=== PATIENT | male | born 1980 | race Caucasian/White ===

== ENCOUNTER 2017-07-20 08:49 | Emergency (ER) | payer OTHER ==
[2017-07-20] MEDS ORDERED: Tetan/Diph/Pertus SYR(Tdap)* 0.5 ML SYR(BOOSTRIX) use SYR IM ONE (09:51)
[2017-07-20] MEDS ORDERED: Ibuprofen TAB* 800 MG PO ONE (09:51)
[2017-07-20] MEDS ORDERED: HYDROcodone/ACETAMIN 5-325 MG* 1 TAB PO ONE (12:00)
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
[2017-07-20 13:02] VITALS: BP 139/87
== END 2017-07-20 13:03 | disposition home or self-care (01) ==
LOC: ED 08:49
DX: S01.511A Laceration without foreign body of lip, initial encounter (principal); S02.5XXA Fracture of tooth (traumatic), initial encounter for closed fracture; W20.8XXA Other cause of strike by thrown, projected or falling object, initial encounter; Y93.H2 Activity, gardening and landscaping; Y92.9 Unspecified place or not applicable; Y99.0 Civilian activity done for income or pay; Z23 Encounter for immunization; F17.200 Nicotine dependence, unspecified, uncomplicated
CPT/HCPCS: 12051; 90471; 90715; 99282; A9270-GY